=== PATIENT | male | born 1985 | race Asian ===

== ENCOUNTER 2020-11-01 16:44 | Emergency (ER) | payer OTHER ==
[2020-11-01 17:08] VITALS: BP 175/110
--- NOTE | 2020-11-01 17:13 | ED Physician Documentation ---
History of Present Illness - Stated complaint Stated Complaint: HIGH BP - Chief complaint Chief Complaint: Cardiac - History obtained from History obtained from: Patient - History of Present Illness Timing: Today Pain level max: 0 Pain level now: 0 - Additonal information Additional information: 35-year-old male presents to the emergency department stating [facility]. He states his blood pressure was 180 systolic. He states normal for him is between 140 and 150 systolic. No chest pain. No shortness of breath. Had a mild headache earlier that felt like his typical migraine. No numbness or tingling. Nothing makes it better or worse. His doctor sent him here for evaluation. Patient is currently asymptomatic Nothing makes it better or worse Review of Systems Constitutional: denies: Fever, Chills Throat: denies: Sore throat Cardiac: denies: Chest pain / pressure, Palpitations Respiratory: denies: Cough GI: denies: Vomiting, Diarrhea Skin: denies: Rash Musculoskeletal: denies: Neck pain, Back pain Neurologic: denies: Focal weakness, Numbness, Seizure, Confused PD PAST MEDICAL HISTORY - Past Medical History Past Medical History: No - Past Surgical History Past Surgical History: Yes Ortho: Other - Allergies Allergies/Adverse Reactions: Allergies Allergy/AdvReac Type Severity Reaction Status Date / Time No Known Drug Allergies Allergy Verified 11/01/20 16:53 - Social History Does the pt smoke?: No Smoking Status: Never smoker Does the pt drink ETOH?: No Does the pt have substance abuse?: No - Immunizations Immunizations are current?: Yes - POLST Patient has POLST: No PD ED PE NORMAL - Vitals Vital signs reviewed: Yes - General General: Alert and oriented X 3, No acute distress, Well developed/nourished - HEENT HEENT: PERRL, Moist mucous membranes - Neck Neck: Supple, no meningeal sign - Cardiac Cardiac: RRR, Strong equal pulses - Respiratory Respiratory: No respiratory distress, Clear bilaterally - Abdomen Abdomen: Soft, Non tender, Non distended - Derm Derm: Warm and dry - Extremities Extremities: No edema, No calf tenderness / cord - Neuro Neuro: Alert and oriented X 3, muff winder 2-12 intact, No motor deficit, No sensory deficit, Normal speech Eye Opening: Spontaneous Motor: Obeys Commands Verbal: Oriented GCS Score: 15 - Psych Psych: Normal mood, Normal affect Results - Vitals Vitals: Vital Signs - 24 hr 11/01/20 11/01/20 16:53 17:03 Temperature 36.1 C L Heart Rate 56 L 61 Respiratory 16 12 Rate Blood Pressure 181/120 H 175/110 H O2 Saturation 98 98 Oxygen O2 Source Room air PD MEDICAL DECISION MAKING - ED course Complexity details: considered differential, d/w patient ED course: 35-year-old male with asymptomatic hypertension. No indication for labs or further testing at this time per ACEP guidelines. We will have him follow-up with his doctor for further care. He states his normal blood pressure is between 140 and 150 systolic. Asymptomatic here. Patient counseled regarding signs and symptoms for which I believe and urgent re-evaluation would be necessary. Patient with good understanding of and agreement to plan and is comfortable going home at this time This document was made in part using voice recognition software. While efforts are made to proofread this document, sound alike and grammatical errors may occur. Departure - Departure Disposition: 01 Home, Self Care Clinical Impression: Asymptomatic hypertension Condition: Good Instructions: ED Hypertension Poss Follow-Up: Jolynn Espinal MD [Primary Care Provider] - Within 1 week Comments: Keep a log of your blood pressure over the next week. Take this once per day. Follow-up with your doctor next week to discuss starting you on medications. Return if you develop chest pain, shortness of breath, vision changes or worsening headaches.
== END 2020-11-01 17:19 | disposition home or self-care (01) ==
LOC: ED 16:44
DX: R03.0 Elevated blood-pressure reading, without diagnosis of hypertension (principal)
CPT/HCPCS: 99281; 99282

== ENCOUNTER 2021-12-08 10:07 | Emergency (ER) | payer OTHER ==
--- NOTE | 2021-12-08 10:46 | ED Physician Documentation ---
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 He takes lisinopril for hypertension, no other medications. 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 He had a work-up including stress testing and echocardiography without pertinent positive results and it is conservatively managed. Yesterday he was working out and developed a fluttering sensation in his chest that lasts seconds at a time and is been persistent on and off about once a minute. He went to the [employer] base and was seen there and was told he had PVCs and was referred here for further evaluation and treatment. Review of Systems Ten Systems: 10 systems reviewed and negative Cardiac: denies: Chest pain / pressure, Pedal edema, Calf pain Respiratory: denies: Dyspnea, Cough, Hemoptysis, Wheezing PD PAST MEDICAL HISTORY - Past Surgical History Past Surgical History: Yes Ortho: Other - Allergies Allergies/Adverse Reactions: Allergies Allergy/AdvReac Type Severity Reaction Status Date / Time No Known Drug Allergies Allergy Verified 12/08/21 10:41 - Social History Does the pt smoke?: No Smoking Status: Never smoker Does the pt drink ETOH?: No Does the pt have substance abuse?: No - Immunizations Immunizations are current?: Yes - POLST Patient has POLST: No PD ED PE NORMAL - Vitals Vital signs reviewed: Yes - General General: Alert and oriented X 3, No acute distress - HEENT HEENT: PERRL, EOMI - Neck Neck: Supple, no meningeal sign, No bony TTP - Cardiac Cardiac: RRR (No ectopy during my exam), No murmur - Respiratory Respiratory: No respiratory distress, Clear bilaterally - Abdomen Abdomen: Normal bowel sounds, Soft, Non tender - Back Back: No CVA TTP, No spinal TTP - Derm Derm: Normal color, Warm and dry - Extremities Extremities: No edema, No calf tenderness / cord - Neuro Neuro: Alert and oriented X 3, Normal speech Results - Vitals Vitals: Vital Signs - 24 hr 12/08/21 12/08/21 10:38 10:40 Temperature 36.5 C Heart Rate 48 L 45 L Respiratory 14 17 Rate Blood Pressure 122/74 135/82 H O2 Saturation 98 100 Oxygen O2 Source Room air - EKG (time done) 1026 Rate: Rate (enter#) (47) Rhythm: Sinus bradycardia [place]: Normal Intervals: Other (Delta wave with borderline low normal ME interval consistent with WPW) QRS: Normal Ischemia: Normal ST segments - Labs Labs: Laboratory Tests 12/08/21 12/08/21 10:46 10:46 WBC 4.7 L RBC 5.37 Hgb 14.9 Hct 43.7 MCV 81.4 MCH 27.7 MCHC 34.1 RDW 11.9 L Plt Count 254 MPV 9.2 Neut # (Auto) 1.6 Lymph # (Auto) 2.5 [place] # (Auto) 0.4 Eos # (Auto) 0.2 Baso # (Auto) 0.0 Absolute Nucleated RBC 0.00 Nucleated RBC % 0.0 Sodium 135 Potassium 3.8 Chloride 99 L Carbon Dioxide 28 Anion Gap 8.0 BUN 17 Creatinine 1.2 Estimated GFR (MDRD) 69 L Glucose 67 L Calcium 9.3 Magnesium 2.1 Total Bilirubin 0.6 AST 34 ALT 41 Alkaline Phosphatase 57 Total Protein 8.2 Albumin 4.5 Globulin 3.7 Albumin/Globulin Ratio 1.2 PD MEDICAL DECISION MAKING - ED course ED course: 36-year-old gentleman with known WPW presents with palpitations since yesterday. Reportedly had PVCs at the [place] clinic. He really did not have any ectopy while on the monitor here. I discussed the case by phone with Dr. Mc at [facility] who after review of his previous work- up and current work-up as well as his symptoms and findings on EKG felt that he should be referred nonurgently to see electrophysiology, but does not need inpatient work-up or treatment. Departure - Departure Disposition: 01 Home, Self Care Clinical Impression: [id number] (WPW) pattern, Palpitations Condition: Good Record reviewed to determine appropriate education?: Yes Instructions: ED Palpitations Comments: Today I discussed her case by phone with Dr. Nicho Navarro, a transformer mechanic over at [facility]. He felt that you do need to follow-up with an habilitation specialist, [place] Dr. Edmundo Shelley Who specializes in electrophysiology. Call your primary care physician today to expedite said referral. Return if you develop dizziness, chest pain, passing out episodes or other new or concerning symptoms.
[2021-12-08 11:05] LABS: ALBUMIN 4.5 g/dL (3.2-5.5); ALBUMIN/GLOBULIN RATIO 1.2 (1.0-2.2); BILIRUBIN,TOTAL 0.6 mg/dL (0.2-1.0); CALCIUM 9.3 mg/dL (8.5-10.3); CREATININE 1.2 mg/dL (0.6-1.2); MAGNESIUM 2.1 mg/dL (1.7-2.8); POTASSIUM 3.8 mmol/L (3.5-5.0); TOTAL PROTEIN 8.2 g/dL (6.7-8.2)
[2021-12-08 11:06] LABS: BASOPHILS % (AUTO) 0.4 %; EOSINOPHILS # (AUTO) 0.2 10^3/uL (0.0-0.7); HCT - HEMATOCRIT 43.7 % (42.0-52.0); HGB - HEMOGLOBIN 14.9 g/dL (14.0-18.0); LYMPHOCYTES # (AUTO) 2.5 10^3/uL (1.5-3.5); LYMPHOCYTES % (AUTO) 52.3 %; MEAN CORPUSCULAR HEMOGLOBIN 27.7 pg (27.0-31.0); MEAN CORPUSCULAR HGB CONC 34.1 g/dL (32.0-36.0); MEAN CORPUSCULAR VOLUME 81.4 fL (80.0-94.0); MEAN PLATELET VOLUME 9.2 fL (7.4-11.4); MONOCYTES # (AUTO) 0.4 10^3/uL (0.0-1.0); MONOCYTES % (AUTO) 8.4 %; NEUTROPHILS # (AUTO) 1.6 10^3/uL (1.5-6.6); NEUTROPHILS % (AUTO) 34.7 %; PLT - PLATELET COUNT 254 10^3/uL (130-450); RED BLOOD COUNT 5.37 10^6/uL (4.70-6.10); RED CELL DISTRIBUTION WIDTH 11.9 % (12.0-15.0); WHITE BLOOD COUNT 4.7 x10^3/uL (4.8-10.8)
[2021-12-08 11:38] VITALS: BP 108/77
== END 2021-12-08 11:43 | disposition home or self-care (01) ==
LOC: ED 10:07
DX: R00.2 Palpitations (principal); I45.6 Pre-excitation syndrome
CPT/HCPCS: 36415; 80053; 83735; 85025; 93005; 99284